=== PATIENT | male | born 1950 | race Asian ===

== ENCOUNTER 2019-07-02 14:09 | Inpatient (IN) | payer MEDICARE, OTHER ==
[~2019-07-02] VITALS: Ht 180.3 cm; Wt 77.1 kg
--- NOTE | 2019-07-02 14:20 | NUR ---
PT BIB HIS SON (KRISTINA) AND DAUGHTER (KEEGAN) FROM A NURSING FACILITY WITH A COMPLAINT OF EPISODIC DISORIENTATION AND FORGETFULNESS. PT IS PLESANT AND ANSWERS ALL QUESTIONS. PT IS AA&O X2-3. PT HAS HX OF CVA IN THE PAST AND HAS LUE CONTRACTURE AND LLE WEAKNESS. PT USES A FOUR FOOTED CANE TO AMBULATE WITH ASSISTANCE, BUT DUE TO THE DISORIENTATION, HE HAS BEEN USING A WHEELCHAIR.
[2019-07-02] MEDS ORDERED: IV NS 0.9% 500 ML BAG IV ONE (15:00)
[2019-07-02 15:32] LABS: BASOPHILS % (AUTO) 0.4 % (0.0-2.0); EOSINOPHILS % (AUTO) 0.9 % (0.0-6.0); HEMATOCRIT 50 % (39-51); HEMOGLOBIN 16.6 g/dL (13.5-17.5); LYMPHOCYTES # (AUTO) 1.1 /CMM (0.8-4.8); LYMPHOCYTES % (AUTO) 10.3 % (20.0-44.0); MEAN CORPUSCULAR HGB CONC 33 g/dl (31.0-36.0); MEAN CORPUSCULAR VOLUME 86 fL (80-96); MONOCYTES # (AUTO) 0.8 /CMM (0.1-1.30); NEUTROPHILS # (AUTO) 8.8 /CMM (1.8-8.9); NEUTROPHILS % (AUTO) 81.4 % (43.0-81.0); PLATELET COUNT (AUTO) 190 /CMM (150-450); RED BLOOD CELL COUNT(AUTO) 5.77 MIL/uL (4.5-6.0); WHITE BLOOD COUNT (AUTO) 10.8 K/uL (4.3-11.0)
[2019-07-02] MEDS ORDERED: ENALAPRILAT INJ (1.25 MG/ML) 1.25 MG/ML VIAL IV ONE ×2 (15:35→15:57)
--- NOTE | 2019-07-02 15:36 | NUR ---
PT'S BP IS STILL ELEVATED. SPOKE TO DR CASTILLO AND NEW ORDERS WERE GIVEN. GLUE COOK IS AT THE BEDSIDE WAITING TO TRANSPORT PT TO CT.
--- NOTE | 2019-07-02 15:36 | NUR ---
PT REC'D 1.25MG VASOTEC VIA IV BY ARIEL JORDAN
[2019-07-02 15:39] LABS: CALCIUM, SERUM 8.7 mg/dL (8.5-10.1); CARBON DIOXIDE 26 mmol/L (21-32); CHLORIDE 100 mmol/L (98-107); CREATININE 1.7 mg/dL (0.6-1.3); GLUCOSE 158 mg/dL (74-106); POTASSIUM 3.4 mmol/L (3.5-5.1); SODIUM SERUM 138 mmol/L (136-145); UREA NITROGEN, BLOOD 15 mg/dL (7-18)
--- NOTE | 2019-07-02 15:39 | NUR ---
PT IS GOING TO CT.
[2019-07-02 15:45] LABS: ALANINE AMINOTRANSFERASE 18 U/L (12-78); ALBUMIN 3.1 g/dL (3.4-5.0); ALKALINE PHOSPHATASE 110 U/L (46-116); ASPARTATE AMINOTRANSFERASE 22 U/L (15-37); BILIRUBIN,DIRECT 0.3 mg/dL (0.0-0.2); BILIRUBIN,TOTAL 1.3 mg/dL (0.2-1.0); TOTAL PROTEIN, SERUM 7.5 g/dL (6.4-8.2)
[2019-07-02 15:46] LABS: ALCOHOL, BLOOD < 3 mg/dL (0-0); SALICYLATE < 2.8 mg/dL (2.8-20.0)
--- NOTE | 2019-07-02 15:54 | NUR ---
PT RETURNED FROM CT.
--- NOTE | 2019-07-02 15:57 | NUR ---
CHECKED PT'S BP AND IT IS 211/116. NOTIFIED. NEW ORDERS GIVEN.
[2019-07-02] MEDS ORDERED: ENALAPRILAT INJ (1.25 MG/ML) 1.25 MG/ML VIAL IV PRN (16:00)
[2019-07-02 16:15] LABS: THYROID STIMULATING HORMONE 1.526 uIU/mL (0.358-3.74)
--- NOTE | 2019-07-02 16:15 | NUR ---
PT STILL DENIES HAVING TO GO TO THE BATHROOM. PT HAS A DIAPER ON THAT NEEDS TO BE CHANGED. CONDOM CATH AND NEW DIAPER APPLIED.
--- NOTE | 2019-07-02 16:20 | NUR ---
PT'S BP IS STILL ELEVATED AT 232/134. NOTIFIED. NEW ORDERS GIVEN AND CARRIED OUT.
[2019-07-02] MEDS ORDERED: hydrALAZINE HCL IV 20 MG VIAL ONE (16:24)
[2019-07-02] MEDS ORDERED: hydrALAZINE HCL IV 20 MG VIAL IV ONE (16:30)
[2019-07-02] MEDS ORDERED: ENALAPRILAT DIHYD. (2.5MG/ML) 1.25 MG/ML VIAL IV ONE (16:30)
--- NOTE | 2019-07-02 16:36 | NUR ---
PAGED [facility].
--- NOTE | 2019-07-02 16:57 | NUR ---
CONDOM CATH REMOVED AND URINE SAMPLE SENT TO LAB. APPROX 300 ML PALE YELLOW URINE OUTPUT.
[2019-07-02 17:04] LABS: APPEARANCE,URINE Clear (CLEAR); BILIRUBIN,URINE Negative (NEGATIVE); BLOOD, URINE Negative Ery/uL (NEGATIVE); COLOR,URINE Yellow (YELLOW); KETONES,URINE Negative (NEGATIVE); LEUKOCYTE ESTERASE ,URINE Negative (NEGATIVE); NITRITE, URINE Negative (NEGATIVE); PROTEIN,URINE >=300 mg/dl (NEGATIVE); UGLUCOSE Negative (NEGATIVE)
--- NOTE | 2019-07-02 17:12 | NUR ---
CALLED NURSING SUP FOR TELE BED.
[2019-07-02 17:19] LABS: BACTERIA,URINE Few /HPF (None Seen); RBC,URINE NONE SEEN /HPF (0-2); SQUAMOUS EPITHELIAL CELL,UR Few /HPF (None Seen); WBC,URINE NONE SEEN /HPF (0-3)
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
[2019-07-02] MEDS ORDERED: SIMV-46 PO (17:28)
[2019-07-02] MEDS ORDERED: GLIP5TAB13 PO (17:28)
[2019-07-02] MEDS ORDERED: ECOTRIN PO (17:28)
[2019-07-02] MEDS ORDERED: CLON0.1T PO (17:28)
[2019-07-02] MEDS ORDERED: LISI40TA4 PO (17:28)
[2019-07-02] MEDS ORDERED: METF-442 PO (17:28)
[2019-07-02] MEDS ORDERED: METO100T7 PO (17:28)
[2019-07-02] MEDS ORDERED: HYDROCODONE/APAP 5/325MG 1 EACH TABLET PO PRN (17:30)
[2019-07-02] MEDS ORDERED: ONDANSETRON HCL/PF 4 MG/2 ML VIAL IVP PRN (17:30)
[2019-07-02] MEDS ORDERED: ZOLPIDEM TARTRATE 5 MG TABLET PO PRN (17:30)
[2019-07-02] MEDS ORDERED: ACETAMINOPHEN 325 MG TABLET PO PRN (17:30)
[2019-07-02] MEDS ORDERED: MAGNESIUM HYDROXIDE 30 ML UDC PO PRN (17:30)
[2019-07-02] MEDS ORDERED: Z GUARD REMEDY 2 OZ OINT TP PRN (17:30)
[2019-07-02] MEDS ORDERED: MAG HYDROX/AL HYDROX/SIMETH 30 ML UDC PO PRN (17:30)
--- NOTE | 2019-07-02 17:31 | NUR ---
NURSING SUP GAVE [phone].
--- NOTE | 2019-07-02 17:37 | NUR ---
PT REC'D A WARM BLANKET. PT'S iPHONE IS CHARGING AND I WILL HELP PT CALL HIS CHILDREN.
--- NOTE | 2019-07-02 17:37 | NUR ---
PT IS UPSET THAT HE CAN NOT SEE HIS CHILDREN, PT WAS TOLD AGAIN THAT THE HOSPITAL IS NOT ALLOWING VISITORS AND WE HAD TO SEND THEM HOME. PT WILL CALL HIS FAMILY WHEN HIS PHONE IS CHARGED.
--- NOTE | 2019-07-02 17:39 | NUR ---
CALLING REPORT TO TELE NURSE.
--- NOTE | 2019-07-02 17:40 | NUR ---
CALLING REPORT TO SENIOR SALESFORCE DEVELOPER. WILL CALL BACK IN 5 MINS.
--- NOTE | 2019-07-02 17:51 | NUR ---
CALLING REPORT TO TELE NURSE.
--- NOTE | 2019-07-02 17:53 | NUR ---
REPORT TO ARIEL STRAUSS
[2019-07-02] MEDS ORDERED: hydrALAZINE HCL 25 MG TABLET PO SCH (18:00)
--- NOTE | 2019-07-02 18:40 | NUR ---
CATTLE MANAGER NOTES PATIENT RECEIVED IN NO RESPIRATORY DISTRESS, NO CHEST PAIN OR ANY DISCOMFORT AT THIS TIME. SKIN WARM TO TOUCH, IV ACCESS SITE INTACT AND PATENT. CARRIED OUT ADMISSION ORDERS ENDORSE ADMISSION TO ONCOMING NURSE.
[2019-07-02] MEDS: METFORMIN 500 MG TABLET PO SCH (19:33)
[2019-07-02] MEDS: LISINOPRIL (20MG) 20 MG TABLET PO SCH (19:36)
[2019-07-02] MEDS: METOPROLOL SUCCINATE 50 MG TAB.SR.24H PO SCH (19:36)
[2019-07-02] MEDS: glipiZIDE 5 MG TABLET PO SCH (19:36)
--- NOTE | 2019-07-02 19:40 | NUR ---
CAN STERILIZER NOTES PATIENT BLOOD PRESSURE 197/ 123 PULSE 65. AM NURSE ADMINISTERED METOPROLOL AND LISONPRIL PER ADMITTING DR ORDER. WILL CONTINUE TO MONITOR.
[2019-07-02 20:00] VITALS: BP 197/123
--- NOTE | 2019-07-02 20:00 | NUR ---
FIELD ARTILLERY FIRE CONTROL MAN ADMITTING NOTES PATIENT RECEIVED BEGINNING OF SHIFT RESTING IN BED. A/O X2, CONFUSED.STABLE ON RA. NO SIGNS OF ACUTE DISTRESS. NO COMPLAINTS OF PAIN OR DISCOMFORT. BELONGINGS ACCOUNTED FOR. PATIENT ORIENTED TO ROOM AND STAFF. VS TAKEN, SKIN ASSESSMENT DONE. IV LOCATED ON R HAND #20 SL. SAFETY PRECAUTIONS IN PLACE WITH BED IN LOWEST POSITION, CALL LIGHT WITHIN REACH, BREAKS ON, BED ALARM ON. WILL CONTINUE TO MONITOR.
[2019-07-02] MEDS: hydrALAZINE HCL 25 MG TABLET PO PRN (20:44)
--- NOTE | 2019-07-02 20:50 | NUR ---
SURVEILLANCE SYSTEM MONITOR NOTES RECHECKED PATIENT BP 199/ 105. ADMINISTERED HYDRALAZINE 25 MG PRN. WILL CONTINUE TO MONITOR.
[2019-07-02] MEDS: CLONIDINE HCL 0.1 MG TABLET PO SCH (22:30)
--- NOTE | 2019-07-02 22:40 | NUR ---
ANIMAL PHYSIOLOGY TEACHER NOTES PATIENT BP DECREASING 164/ 87 ADMINISTERED SCHEDULED CLONIDINE. PATIENT SHOWING NO SIGNS OF DISTRESS, ABLE TO MAKE NEEDS KNOWN, NO COMPLAINTS OF PAIN. WILL CONTINUE TO MONITOR.
[2019-07-03] VITALS (9 sets, daily range): BP systolic 151–217; BP diastolic 64–108
--- NOTE | 2019-07-03 07:23 | NUR ---
STOVE FITTER CLOSING NOTES PATIENT CURRENTLY RESTING IN BED A/OX 2, CAN BE FORGETFUL. STABLE ON RA WITH BREATHING EVEN AND UNLABORED, NO SOB NOTED. NO SIGNS OF ACUTE DISTRESS. NO COMPLAINTS OF PAIN OR DISCOMFORT. TELE MONITOR READING SR. IV LOCATED ON R FA #20 SL. SAFETY PRECAUTIONS IN PLACE WITH BED IN LOWEST POSITION, CALL LIGHT WITHIN REACH, BREAKS ON, SIDE RAILS UP. WILL ENDORSE TO ONCOMING SHIFT ABOUT ORA,.
[2019-07-03 07:36] LABS: BASOPHILS # (AUTO) 0.1 /CMM (0.0-0.2); BASOPHILS % (AUTO) 0.6 % (0.0-2.0); EOSINOPHILS % (AUTO) 1.6 % (0.0-6.0); HEMATOCRIT 44 % (39-51); HEMOGLOBIN 14.8 g/dL (13.5-17.5); LYMPHOCYTES # (AUTO) 1.5 /CMM (0.8-4.8); LYMPHOCYTES % (AUTO) 14.6 % (20.0-44.0); MEAN CORPUSCULAR HGB CONC 34 g/dl (31.0-36.0); MEAN CORPUSCULAR VOLUME 84 fL (80-96); MONOCYTES # (AUTO) 0.9 /CMM (0.1-1.30); MONOCYTES % (AUTO) 8.7 % (2.0-12.0); NEUTROPHILS # (AUTO) 7.5 /CMM (1.8-8.9); NEUTROPHILS % (AUTO) 74.5 % (43.0-81.0); PLATELET COUNT (AUTO) 185 /CMM (150-450); RED BLOOD CELL COUNT(AUTO) 5.18 MIL/uL (4.5-6.0); WHITE BLOOD COUNT (AUTO) 10.1 K/uL (4.3-11.0)
[2019-07-03 07:43] LABS: ALBUMIN 2.7 g/dL (3.4-5.0); BILIRUBIN,TOTAL 1.4 mg/dL (0.2-1.0); CALCIUM, SERUM 8.3 mg/dL (8.5-10.1); CREATININE 1.5 mg/dL (0.6-1.3); MAGNESIUM 1.7 mg/dL (1.8-2.4); PHOSPHORUS 3.6 mg/dL (2.5-4.9); POTASSIUM 3.1 mmol/L (3.5-5.1); TOTAL PROTEIN, SERUM 6.6 g/dL (6.4-8.2)
--- NOTE | 2019-07-03 07:50 | NUR ---
Tele/RN Opening Note Received patient AO x 1-2, sleeping, does no appears pain or any discomfort. Respiratory even and unlabored in room air. Skin is warm to touch, kept clean/dry, intact IV site on right FA 20g SL. Kept low position of the bed with locked wheel and elevated head of bed foe secure airway. Bed alarm is on. Call light within reach, will continue to monitor.
[2019-07-03 07:51] LABS: THYROID STIMULATING HORMONE 1.81 uIU/mL (0.358-3.74)
[2019-07-03] MEDS: glipiZIDE 5 MG TABLET PO SCH ×2 (08:37→17:19)
[2019-07-03] MEDS: LISINOPRIL (20MG) 20 MG TABLET PO SCH (08:37)
[2019-07-03] MEDS: METFORMIN 500 MG TABLET PO SCH ×2 (08:37→17:19)
[2019-07-03] MEDS: METOPROLOL SUCCINATE 50 MG TAB.SR.24H PO SCH (08:38)
[2019-07-03] MEDS ORDERED: AMLODIPINE BESYLATE 5 MG TABLET PO SCH (09:00)
[2019-07-03] MEDS ORDERED: LISINOPRIL (20MG) 20 MG TABLET PO SCH (09:00)
[2019-07-03] MEDS ORDERED: Magnesium 1GM/D5W 100ML PREMIX 100 ML IV SCH (09:30)
[2019-07-03] MEDS: POTASSIUM CHLORIDE 20 MEQ TAB.PRT.SR PO SCH ×2 (09:45→10:29)
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
--- NOTE | 2019-07-03 10:09 | NUR ---
Patient received DVT pump order for DVT prophylaxis, noted and carry out.
--- NOTE | 2019-07-03 13:10 | NUR ---
Telephone consent obtained by Daughter/Rosario Hall.
--- NOTE | 2019-07-03 14:56 | NUR ---
ATTEMPTED FOR US RENAL EXAM AT 14:30. WAX PATTERN COATER IN THE ROOM CLEANING AND CHANGING THE PT'S CLOTHES AND SHEETS
[2019-07-03 17:24] LABS: APPEARANCE,URINE CLEAR (CLEAR); BILIRUBIN,URINE NEGATIVE (NEGATIVE); BLOOD, URINE SMALL Ery/uL (NEGATIVE); COLOR,URINE YELLOW (YELLOW); KETONES,URINE NEGATIVE (NEGATIVE); LEUKOCYTE ESTERASE ,URINE NEGATIVE (NEGATIVE); NITRITE, URINE NEGATIVE (NEGATIVE); PROTEIN,URINE >=300 mg/dl (NEGATIVE); UGLUCOSE 100 MG/DL mg/dL (NEGATIVE)
[2019-07-03 17:40] LABS: BACTERIA,URINE Few /HPF (None Seen); COARSE GRANULAR CASTS,URINE Few /LPF (None Seen); EOSINOPHIL,URINE None Seen; FINE GRANULAR CASTS,URINE Few /LPF (None Seen); SQUAMOUS EPITHELIAL CELL,UR Few /HPF (None Seen); WBC,URINE 0-2 /HPF (0-3)
[2019-07-03 18:03] LABS: URINE TOTAL PROTEIN 581.5 mg/dL (0-11.9)
--- NOTE | 2019-07-03 18:30 | NUR ---
MS/RN Closing note Patient in bed, no appears pain or any discomfort. Respiratory even and unlabored with room air. Skin is warm touch, kept clean/dry, intact IV site. Keep low bed position with locked wheel and elevated head of bed for secure airway. Call light within reach, will endorse warehouse supervisor.
--- NOTE | 2019-07-03 19:10 | NUR ---
MS/RN OPENING NOTES: PATIENT RECEIVED RESTING IN BED. A/O X2, CONFUSED AND FORGETFUL. REORIENTATION NEEDED. ON RA SATURATING WELL. NO S/S OF ACUTE DISTRESS. NO C/O PAIN OR DISCOMFORT. IV LOCATED ON R HAND #20 SL. SCHEDULED FOR LEFT FOOT CALLUS DEBRIDEMENT TOMORROW MORNING. CONSENTS SIGNED. SAFETY PRECAUTIONS IN PLACE WITH BED IN LOWEST POSITION, CALL LIGHT WITHIN REACH, BREAKS ON, BED ALARM ON. WILL CONTINUE TO MONITOR.
[2019-07-03] MEDS: CLONIDINE HCL 0.1 MG TABLET PO SCH (21:27)
[2019-07-03] MEDS: SIMVASTATIN 20 MG TABLET PO SCH (21:27)
[2019-07-03] MEDS: hydrALAZINE HCL 25 MG TABLET PO PRN (23:58)
--- NOTE | 2019-07-04 00:01 | NUR ---
MS/RN NOTES: PT.'S BLOOD PRESSURE ELEVATED. 168/97. HR:69. NO C/O PAIN AT THIS TIME. ADMINISTERED HYDRALAZINE 25MG PO ORDERED PRN FOR SBP >160. WILL CONTINUE TO MONITOR.
[2019-07-04 01:20] VITALS: BP 149/84
--- NOTE | 2019-07-04 01:20 | NUR ---
MS/RN NOTES: REASSESSMENT OF BP. NOW 149/84. HR:70. NO C/O PAIN AT THIS TIME. PT. STABLE. HYDRALAZINE 25MG PO EFFECTIVE. WILL KEEP MONITORING.
--- NOTE | 2019-07-04 06:49 | NUR ---
MS/RN CLOSING NOTES: PATIENT CURRENTLY RESTING IN BED. REMAINS A/OX 2, STABLE ON RA WITH BREATHING EVEN AND UNLABORED, NO SOB NOTED. NO SIGNS OF ACUTE DISTRESS. NO COMPLAINTS OF PAIN OR DISCOMFORT. NO SIGNIFICANT CHANGES IN CONDITION. IV LOCATED ON R FA #20 SL. ALL NEEDS ATTENDED AND MET. ALL DUE MEDS GIVEN ORDERED. KEPT PT. WARM AND COMFORTABLE THROUGHOUT THE SHIFT. SAFETY PRECAUTIONS IN PLACE WITH BED IN LOWEST POSITION, CALL LIGHT WITHIN REACH, BREAKS ON, SIDE RAILS UP. WILL ENDORSE TO ONCOMING SHIFT ABOUT ORA,.
[2019-07-04 06:51] LABS: BASOPHILS # (AUTO) 0.1 /CMM (0.0-0.2); BASOPHILS % (AUTO) 0.6 % (0.0-2.0); EOSINOPHILS % (AUTO) 1.7 % (0.0-6.0); HEMATOCRIT 44 % (39-51); HEMOGLOBIN 14.7 g/dL (13.5-17.5); LYMPHOCYTES # (AUTO) 1.3 /CMM (0.8-4.8); LYMPHOCYTES % (AUTO) 13.7 % (20.0-44.0); MEAN CORPUSCULAR HGB CONC 34 g/dl (31.0-36.0); MEAN CORPUSCULAR VOLUME 85 fL (80-96); MONOCYTES % (AUTO) 10.9 % (2.0-12.0); NEUTROPHILS # (AUTO) 6.7 /CMM (1.8-8.9); NEUTROPHILS % (AUTO) 73.1 % (43.0-81.0); PLATELET COUNT (AUTO) 181 /CMM (150-450); RED BLOOD CELL COUNT(AUTO) 5.15 MIL/uL (4.5-6.0); WHITE BLOOD COUNT (AUTO) 9.1 K/uL (4.3-11.0)
[2019-07-04 07:05] LABS: ALBUMIN 2.6 g/dL (3.4-5.0); POTASSIUM 3.1 mmol/L (3.5-5.1)
[2019-07-04 07:36] LABS: BILIRUBIN,TOTAL 1.2 mg/dL (0.2-1.0); CALCIUM, SERUM 8.3 mg/dL (8.5-10.1); CREATININE 1.5 mg/dL (0.6-1.3); MAGNESIUM 1.9 mg/dL (1.8-2.4); PHOSPHORUS 3.4 mg/dL (2.5-4.9); TOTAL PROTEIN, SERUM 6.5 g/dL (6.4-8.2)
[2019-07-04 07:43] LABS: THYROID STIMULATING HORMONE 1.625 uIU/mL (0.358-3.74)
[2019-07-04 08:00] VITALS: BP 159/94
--- NOTE | 2019-07-04 08:00 | NUR ---
ms rn received on bed, awake,oriented x2,not in any form of distress, respirations even and unlabored,no sob noted, lungs are diminish,abdomen sofr,positive bowel sounds,denies pain at this time,all needs attended.
[2019-07-04] MEDS: METFORMIN 500 MG TABLET PO SCH ×2 (09:26→17:02)
[2019-07-04] MEDS: glipiZIDE 5 MG TABLET PO SCH ×2 (09:27→17:02)
[2019-07-04] MEDS: LISINOPRIL (20MG) 20 MG TABLET PO SCH (09:27)
[2019-07-04] MEDS: METOPROLOL SUCCINATE 50 MG TAB.SR.24H PO SCH (09:27)
--- NOTE | 2019-07-04 10:00 | NUR ---
ms duran breakfast served,due meds given,tolerated well.
[2019-07-04] MEDS: POTASSIUM CHLORIDE 20 MEQ TAB.PRT.SR PO SCH ×3 (11:44→15:38)
[2019-07-04 16:00] VITALS: BP 149/90
[2019-07-04] MEDS: ASPIRIN 81 MG TAB.CHEW PO SCH (17:02)
--- NOTE | 2019-07-04 18:00 | NUR ---
ms rn on bed,no distress noted.
--- NOTE | 2019-07-04 19:00 | NUR ---
MS/RN OPENING NOTES: RECEIVED PATIENT RESTING IN BED. A/O X2-3, CONFUSED AND FORGETFUL. VERBALLY RESPONSIVE AND ABLE TO MAKE NEEDS KNOWN. REORIENTATION NEEDED. ON RA SATURATING WELL. NO S/S OF ACUTE DISTRESS. NO C/O PAIN OR DISCOMFORT. IV LOCATED ON R HAND #20 SL. SAFETY PRECAUTIONS IN PLACE WITH BED IN LOWEST POSITION, CALL LIGHT WITHIN REACH, BREAKS ON, BED ALARM ON. WILL CONTINUE TO MONITOR.
[2019-07-04 20:00] VITALS: BP 139/71
--- NOTE | 2019-07-04 20:00 | NUR ---
MS/RN NOTES: DR. BERRY CALLED TO CHECK IN WITH PT., INCLUDING IF HE'S FEELING DEPRESSED OR SAD. PER PT "I HAVE 3 KIDS AND I'M HAPPY WITH MY FAMILY BUT I LIVE ALONE." DR. BERRY WILL ORDER MED FOR DEPRESSION TO BE SCHEDULED IN THE MORNING.
[2019-07-04 20:34] VITALS: BP 139/71
[2019-07-04] MEDS: SIMVASTATIN 20 MG TABLET PO SCH (21:26)
[2019-07-04] MEDS: CLONIDINE HCL 0.1 MG TABLET PO SCH (21:27)
--- NOTE | 2019-07-05 07:02 | NUR ---
MS RN OPENING NOTES: RECEIVED PT RESTING IN BED. A/O X2-3, CONFUSED AND FORGETFUL. PT ABLE TO VERBALIZE NEEDS. REORIENTATION AND REDIRECTION NEEDED. PT SATURATING WELL ON RA. NO S/S OF ANY ACUTE DISTRESS. NO C/O PAIN OR DISCOMFORT AT THIS TIME. IV ACCESS ON RFA G#20 SL. BED IN LOWEST LOCKED, SIDE RAILS UP, BED ALARM ON, HOB ELEVATED TO SEMI FOWLERS POSITION, CALL LIGHTS WITHIN REACH. WILL CONTINUE TO MONITOR
[2019-07-05 07:12] LABS: CALCIUM, SERUM 8.2 mg/dL (8.5-10.1); CREATININE 1.4 mg/dL (0.6-1.3); POTASSIUM 3.9 mmol/L (3.5-5.1)
[2019-07-05 08:00] VITALS: BP 169/88
[2019-07-05] MEDS: LISINOPRIL (20MG) 20 MG TABLET PO SCH (08:40)
[2019-07-05 08:42] VITALS: BP 169/88
[2019-07-05] MEDS: METOPROLOL SUCCINATE 50 MG TAB.SR.24H PO SCH (08:42)
[2019-07-05] MEDS: ASPIRIN 81 MG TAB.CHEW PO SCH (08:42)
[2019-07-05] MEDS: glipiZIDE 5 MG TABLET PO SCH ×2 (08:42→16:48)
[2019-07-05] MEDS: METFORMIN 500 MG TABLET PO SCH ×2 (08:43→16:48)
[2019-07-05] MEDS ORDERED: Fluoxetine 10 mg capsule PO SCH (09:00)
[2019-07-05] MEDS ORDERED: ASPIRIN 81 MG TAB.CHEW PO SCH (09:00)
--- NOTE | 2019-07-05 17:05 | NUR ---
MS LEAD CUSTOMER SERVICE REPRESENTATIVE NOTES PT DISCHARGED TO [facility] AT THIS TIME. PT IS STABLE. VS STABLE. PT CARE, TREATMENT AND MEDICATION EDUCATION PROVIDED. PT VERBALIZED UNDERSTANDING TO BENIFITS AND RISKS OF DISCHARGE TEACHINGS. ALL CARE, MEDICATIONS AND NEEDS ADMINISTERED PER ORDER. IV ACCESS REMOVED, CLEAN AND DRESSED. NO SIGNS OF INFILTRATION OR BLEEDING NOTED. ALL BELONGINGS ACCOUNTED FOR AND DOCUMENTED IN CHART. PICTURES TAKEN, DOCUMENTED AND FILED IN CHART. PT ACCOMPANIED ON WHEEL CHAIR TO LOBBY BY MAIK BATISTA. PT PICKED UP BY DAUGHTER NOAH.
[2019-07-10 11:11] LABS: *SPE A/G RATIO 0.7 (0.7-1.7); *SPE ALBUMIN 2.4 g/dL (2.9-4.4); *SPE ALPHA-1-GLOBULIN 0.2 g/dL (0.0-0.4); *SPE ALPHA-2-GLOBULIN 0.8 g/dL (0.4-1.0); *SPE BETA GLOBULIN 0.7 g/dL (0.7-1.3); *SPE GLOBULIN, TOTAL 3.4 g/dL (2.2-3.9); *SPE M-SPIKE 0.8 g/dL (Not Observed); *SPEGAMMA GLOBULIN 1.6 g/dL (0.4-1.8)
== END 2019-07-05 17:15 | DRG 682 ==
LOC: ER 14:15 → TELE 17:36 → MED 07-03 11:09
PROVIDERS: ADMIT Internal Medicine; ATTEND Nurse Practitioner Acute Care
PROC: 0HBNXZZ Excision of Left Foot Skin, External Approach (ICD-10-PCS; principal; 2019-07-04)
DX: N17.0 Acute kidney failure with tubular necrosis (principal); G93.41 Metabolic encephalopathy; I69.854 Hemiplegia and hemiparesis following other cerebrovascular disease affecting left non-dominant side; F33.2 Major depressive disorder, recurrent severe without psychotic features; I16.0 Hypertensive urgency; I10 Essential (primary) hypertension; F01.50 Vascular dementia, unspecified severity, without behavioral disturbance, psychotic disturbance, mood disturbance, and anxiety; L84 Corns and callosities; I25.10 Atherosclerotic heart disease of native coronary artery without angina pectoris; E78.5 Hyperlipidemia, unspecified; E87.6 Hypokalemia; E83.42 Hypomagnesemia; E11.621 Type 2 diabetes mellitus with foot ulcer; L97.529 Non-pressure chronic ulcer of other part of left foot with unspecified severity; M21.372 Foot drop, left foot; M20.42 Other hammer toe(s) (acquired), left foot; M20.41 Other hammer toe(s) (acquired), right foot; M62.562 Muscle wasting and atrophy, not elsewhere classified, left lower leg; M62.561 Muscle wasting and atrophy, not elsewhere classified, right lower leg
CPT/HCPCS: 36415; 70450-TC; 71045-TC; 80048-TC; 80053-TC; 80061-TC; 80076-TC; 80305; 81000-TC; 82533; 82550-TC; 82570-TC; 82962-TC; 83735-TC; 83970; 84100-TC; 84155; 84155-TC; 84165; 84300-TC; 84443-TC; 84484-TC; 85025-TC; 87081-TC; 97110-TC; 97112-TC; 97116-TC; 97530-TC; A4349; G0378; G0480; J0360; J3475; J3490; J7030; J7040

== ENCOUNTER 2019-08-14 21:06 | Inpatient (IN) | payer OTHER ==
[~2019-08-14] VITALS: Ht 185.4 cm; Wt 77.1 kg
[~2019-08-14 21:06] MED LIST: CLON0.1T PO; ECOTRIN PO; GLIP5TAB13 PO; LISI40TA4 PO; METF-442 PO; METO100T7 PO; SIMV-46 PO
[2019-08-14] MEDS ORDERED: ENALAPRILAT INJ (1.25 MG/ML) 1.25 MG/ML VIAL IV ONE ×2 (21:29→21:30)
[2019-08-14] MEDS ORDERED: IV NS 0.9% 500 ML BAG IV ONE (21:30)
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
--- NOTE | 2019-08-14 21:41 | NUR ---
blood drawn and sent to lab.
[2019-08-14 21:45] LABS: BASOPHILS # (AUTO) 0.1 /CMM (0.0-0.2); BASOPHILS % (AUTO) 0.8 % (0.0-2.0); HEMATOCRIT 44 % (39-51); HEMOGLOBIN 14.8 g/dL (13.5-17.5); LYMPHOCYTES # (AUTO) 1.4 /CMM (0.8-4.8); LYMPHOCYTES % (AUTO) 11.6 % (20.0-44.0); MEAN CORPUSCULAR HGB CONC 34 g/dl (31.0-36.0); MEAN CORPUSCULAR VOLUME 86 fL (80-96); MONOCYTES # (AUTO) 0.9 /CMM (0.1-1.30); MONOCYTES % (AUTO) 7.2 % (2.0-12.0); NEUTROPHILS # (AUTO) 9.7 /CMM (1.8-8.9); NEUTROPHILS % (AUTO) 79.4 % (43.0-81.0); PLATELET COUNT (AUTO) 234 /CMM (150-450); RED BLOOD CELL COUNT(AUTO) 5.05 MIL/uL (4.5-6.0); WHITE BLOOD COUNT (AUTO) 12.3 K/uL (4.3-11.0)
[2019-08-14 22:39] LABS: CALCIUM, SERUM 8.8 mg/dL (8.5-10.1); CARBON DIOXIDE 28 mmol/L (21-32); CHLORIDE 100 mmol/L (98-107); CREATININE 1.6 mg/dL (0.6-1.3); GLUCOSE 191 mg/dL (74-106); POTASSIUM 3.1 mmol/L (3.5-5.1); SODIUM SERUM 137 mmol/L (136-145); UREA NITROGEN, BLOOD 24 mg/dL (7-18)
[2019-08-14] MEDS ORDERED: LIDOCAINE 2% JEL UROJET 10 ML MM ONE ×3 (22:56→23:00)
[2019-08-14 23:01] LABS: ALANINE AMINOTRANSFERASE 17 U/L (12-78); ALKALINE PHOSPHATASE 91 U/L (46-116); ASPARTATE AMINOTRANSFERASE 20 U/L (15-37); BILIRUBIN,DIRECT 0.2 mg/dL (0.0-0.2)
[2019-08-14 23:02] LABS: ACETAMINOPHEN < 2 ug/ml (10-30); ALCOHOL, BLOOD 1 mg/dL (0-0); SALICYLATE < 2.0 mg/dL (2.8-20.0)
[2019-08-14] MEDS ORDERED: IV PREMIX 0.45% NS + KCL 1,000 ML IV ONE (23:02)
--- NOTE | 2019-08-14 23:04 | NUR ---
URINE COLLECTED AND SENT TO THE LAB.
[2019-08-14 23:25] LABS: APPEARANCE,URINE Clear (CLEAR); BILIRUBIN,URINE Negative (NEGATIVE); BLOOD, URINE Small Ery/uL (NEGATIVE); COLOR,URINE Yellow (YELLOW); KETONES,URINE Negative (NEGATIVE); LEUKOCYTE ESTERASE ,URINE Negative (NEGATIVE); NITRITE, URINE Negative (NEGATIVE); PROTEIN,URINE >=300 mg/dl (NEGATIVE); UGLUCOSE 250 MG/DL mg/dL (NEGATIVE)
--- NOTE | 2019-08-14 23:28 | NUR ---
ORDER FOR 1/2 NS 20MEQ KCL 1000ML MEDICATION IS NOT AVAILABLE IN THE ER DEPARTMENT. MEDICATION ORDER IS GIVEN TO NURSING SPECIAL EVENTS DRIVER FOR MEDICATION REFILL.
[2019-08-14 23:51] LABS: BACTERIA,URINE None seen /HPF (None Seen); SQUAMOUS EPITHELIAL CELL,UR Few /HPF (None Seen); URINE AMORPHOUS URATE Few /HPF (None Seen); WBC,URINE 0-2 /HPF (0-3)
--- NOTE | 2019-08-15 00:30 | NUR ---
room assignment: [id number] gps
--- NOTE | 2019-08-15 00:39 | NUR ---
DR. STUART SPEAKING WITH DR. REBOLLEDO REGARDING ADMISSION
--- NOTE | 2019-08-15 01:16 | NUR ---
PATIENT IS SENT TO CT VIA [facility]
--- NOTE | 2019-08-15 01:25 | NUR ---
PATIENT RETURN FROM CT.
--- NOTE | 2019-08-15 01:26 | NUR ---
ATTEMPTED TO GIVE REPORT TO NURSE, STAFF STATES THAT CHARGE NURSE AND ASSIGNED NURSE ARE TAKING A BREAK, CALL 15-20MINUTES.
[2019-08-15] MEDS ORDERED: ONDANSETRON HCL/PF 4 MG/2 ML VIAL ONE (01:43)
[2019-08-15] MEDS ORDERED: MISCELLANEOUS MED 1 EA EA XX ONE (02:00)
--- NOTE | 2019-08-15 02:06 | NUR ---
REPORT GIVEN TO MADHURI GEORGE FOR ORA.
[2019-08-15 02:20] VITALS: BP 194/115
--- NOTE | 2019-08-15 02:30 | NUR ---
RN NOTES RECEIVED PATIENT TRANSPORTED VIA GURNEY FROM ER. INITIATED ADMISSION ASSESSMENT, SKIN ASSESSMENT DONE, PATIENT IS WITHDRAWN , ALERT ORIENTED X1-2. SAFETY MEASURES INPLACE, CALL LIGHT WITHIN EASY REACH, BED IN LOW LOCKED POSITION, SIDERAILS UPX2. KEEP CLEAN WARM AND COMFORTABLE. VOMITTED COFFEE GROUND EMESIS X1 APPROXIMATELY 50 ML. ALL NEEDS ANTICIPATED,AWAITING DR. REBOLLEDO FOR ORDERS.
[2019-08-15 04:00] VITALS: BP 158/87
--- NOTE | 2019-08-15 04:36 | NUR ---
RN NOTES CALLED AND SPOKE WITH DR. DAVID REBOLLEDO MD. ADMITTING ORDERS OBTAINED.
[2019-08-15] MEDS ORDERED: MORPHINE SULFATE INJ 2 MG/ML DISP.SYRIN IV PRN (05:00)
[2019-08-15] MEDS ORDERED: ONDANSETRON HCL/PF 4 MG/2 ML VIAL IV PRN (05:00)
[2019-08-15] MEDS ORDERED: LORAZEPAM INJ 2 MG/ML VIAL IV PRN (05:00)
[2019-08-15] MEDS ORDERED: ACETAMINOPHEN 325 MG TABLET PO PRN (05:00)
[2019-08-15] MEDS ORDERED: IV D5/0.45 NACL 1,000 ML IV ONE (05:00)
[2019-08-15] MEDS ORDERED: BLOOD SUGAR DIAGNOSTIC 1 EACH STRIP IN SCH ×2 (06:00)
[2019-08-15] MEDS ORDERED: INSULIN ASPART/LISPRO 100 UNIT/ML CARTRIDGE SQ PRN (06:00)
[2019-08-15] MEDS ORDERED: DEXTROSE 50%-WATER 50 ML DISP.SYRIN IV PRN ×2 (06:00)
[2019-08-15] MEDS ORDERED: *INSULIN ASPART NOVOLOG 100 UNIT/ML CARTRIDGE SQ PRN (06:00)
[2019-08-15] MEDS ORDERED: PIPERACILLIN /TAZOBACTAM 3.375 G VIAL IV ONE (06:10)
[2019-08-15] MEDS: PIPERACILLIN /TAZOBACTAM 3.375 G in IV D5W 50 ML IV SCH ×3 (06:12→21:10)
[2019-08-15 06:18] VITALS: BP 158/87
[2019-08-15 06:31] LABS: BASOPHILS % (AUTO) 0.3 % (0.0-2.0); EOSINOPHILS % (AUTO) 0.5 % (0.0-6.0); HEMATOCRIT 40 % (39-51); HEMOGLOBIN 13.3 g/dL (13.5-17.5); LYMPHOCYTES # (AUTO) 1.3 /CMM (0.8-4.8); LYMPHOCYTES % (AUTO) 11.1 % (20.0-44.0); MEAN CORPUSCULAR HGB CONC 34 g/dl (31.0-36.0); MEAN CORPUSCULAR VOLUME 87 fL (80-96); MONOCYTES # (AUTO) 0.5 /CMM (0.1-1.30); MONOCYTES % (AUTO) 4.6 % (2.0-12.0); NEUTROPHILS # (AUTO) 9.5 /CMM (1.8-8.9); NEUTROPHILS % (AUTO) 83.5 % (43.0-81.0); PLATELET COUNT (AUTO) 204 /CMM (150-450); RED BLOOD CELL COUNT(AUTO) 4.56 MIL/uL (4.5-6.0); WHITE BLOOD COUNT (AUTO) 11.3 K/uL (4.3-11.0)
[2019-08-15] MEDS: BLOOD SUGAR DIAGNOSTIC 1 EACH STRIP IN SCH ×4 (06:35→23:40)
--- NOTE | 2019-08-15 06:39 | NUR ---
RN NOTES ALL NEEDS ATTENDED AND MET. ATTEMPTED TO PLACE CONDOM CATHETER TO OBTAIN URINE SPECIMEN FOR URINALYSIS AND URINE PROFILE, PATIENT REFUSED. SAFETY MEASURES INPLACE, BED IN LOW LOCKED POSITION, REPOSITIONED FOR COMFORT, NO SOB NOTED, RESTING COMFORTABLY, CALL LIGHT WITHIN EASY REACH.WILL ENDORSE TO AM NURSE FOR CONTINUITY OF CARE.
[2019-08-15 07:01] LABS: ALBUMIN 2.9 g/dL (3.4-5.0); BILIRUBIN,TOTAL 1.3 mg/dL (0.2-1.0); CALCIUM, SERUM 8.4 mg/dL (8.5-10.1); CREATININE 1.3 mg/dL (0.6-1.3); POTASSIUM 3.3 mmol/L (3.5-5.1)
[2019-08-15 07:05] LABS: THYROID STIMULATING HORMONE 2.402 uIU/mL (0.358-3.74)
[2019-08-15] MEDS ORDERED: ASPI-1152 PO (07:34)
[2019-08-15] MEDS ORDERED: AMLO5TAB9 PO (07:34)
[2019-08-15] MEDS ORDERED: QUET25TA PO (07:34)
[2019-08-15] MEDS: PANTOPRAZOLE 40 MG VIAL IV SCH ×2 (09:22→21:10)
--- NOTE | 2019-08-15 09:30 | NUR ---
MS RN NOTES PATIENT UNABLE TO RECALL WHAT HAPPENED PRIOR TO HOSPITALIZATION. PATIENT AWARE OF RETIREMENT MEMORY, AWARE OF CURRENT PRESIDENT WHEN INTERVIEWED.
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
[2019-08-15] MEDS ORDERED: Z GUARD REMEDY 2 OZ OINT TP PRN (10:00)
[2019-08-15] MEDS ORDERED: POTASSIUM CHLORIDE 20 MEQ TAB.PRT.SR PO SCH (10:30)
[2019-08-15] MEDS: Z GUARD REMEDY 2 OZ OINT TP SCH (11:16)
--- NOTE | 2019-08-15 12:00 | NUR ---
MS RN NOTES CALLED PHARMACY AWAITING FOR INSULIN.
--- NOTE | 2019-08-15 12:55 | NUR ---
MS RN NOTES CALLED PHARMACY, AWAITING FOR INSULIN
--- NOTE | 2019-08-15 13:00 | NUR ---
MS RN NOTES PATIENT ATE LUNCH WELL WITHOUT CHEWING/SWALLOWING DIFFICULTY WITH FAIR PO INTAKE.
--- NOTE | 2019-08-15 13:10 | NUR ---
MS RN NOTES CALLED AND INFORMED PHARMACY STILL AWAITING FOR INSULIN. PER PHARMACY WILL SEND MEDICATION.
--- NOTE | 2019-08-15 13:54 | NUR ---
MS RN NOTES RECEIVED INSULIN FROM PHARMACY.
[2019-08-15] MEDS: INSULIN REGULAR, HUMAN 100 UNIT/ML 3 ML VIAL SQ PRN ×3 (13:57→23:20)
--- NOTE | 2019-08-15 15:15 | NUR ---
MS RN NOTES PATIENT SEEN AND EXMAINED BY Darinel PORTER PER , NO ANTICOAGULANTS, WILL RESUME HOME MEDICATIONS/ MED RECON. APPLIED DVT PUMP IN PLACE.
[2019-08-15] MEDS ORDERED: POTASSIUM CHLORIDE 20 MEQ TAB.PRT.SR PO ONE (15:30)
[2019-08-15] MEDS ORDERED: METOPROLOL SUCCINATE 50 MG TAB.SR.24H PO SCH (15:30)
[2019-08-15] MEDS ORDERED: AMLODIPINE BESYLATE 5 MG TABLET PO SCH (16:00)
[2019-08-15 16:08] VITALS: BP 170/90
[2019-08-15] MEDS: IV NS 0.9% 1,000 ML IV PRN (16:11)
[2019-08-15] MEDS: hydrALAZINE HCL IV 20 MG VIAL IV PRN (16:28)
--- NOTE | 2019-08-15 16:35 | NUR ---
MS RN NOTES DR. GO MADE AWARE OF PSYCH CONSULT PER DR. REBOLLEDO'S ORDER.
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
[2019-08-15] MEDS: QUETIAPINE FUMARATE 25 MG TABLET PO SCH (18:23)
--- NOTE | 2019-08-15 19:00 | NUR ---
MS RN NOTES PATIENT RESTING COMFORTABLY IN BED, WATCHING TV. HOB ELEVATED. NO S/S OF RESPIRATORY DISTRESS. DENIES ANY C/O PAIN NOR DISCOMFORT. RIGHT AC # 20 INTACT AND PATENT INFUSING NS AT 70ML/HR DAVID WELL. BED IN LOWEST POSITION, LOCKED. BED ALARM ON. BED SIDERAILS UP X2. CALL LIGHT WITHIN REACH. ABLE TO VERBALIZE NEEDS.
--- NOTE | 2019-08-15 19:30 | NUR ---
MS/RN OPENING NOTES RECEIVED PATIENT IN BED RESTING, ALERT AND ORIENTED 1-2. PATIENT SHOWS NO SIGNS OF SOB, IN NO RESPIRATORY DISTRESS. PATIENT STATES NO PAIN AT THE MOMENT. PATIENT ON ROOM AIR TOLERATING WELL. PATIENT HAS CONDOM CATH IN PLACE DRAINING CLEAR YELLOW URINE. IV ACCESS IN PLACE ON RIGHT AC #20 G, INTACT AND RUNNING NS AT 70 ML/HR. SAFETY MEASURES ARE IN PLACE, BED ALARM IS ON, BED IS LOCKED AND PLACED IN LOW POSITION SIDE RAILS UP X 2. CALL LIGHT IS WITHIN REACH. WILL CONTINUE TO MONITOR PATIENT THROUGH OUT SHIFT. Addendum: 08/15/19 at 2255 by GERALDINE ROACH RN MS/RN NOTES NOTES PATIENT HAS LEFT SIDED WEAKNESS BILATERAL UPPER AND LOWER EXTREMITIES. SAFETY MEASURES ARE IN PLACE, BED LOW AND LOCKED SIDE RAILS UP X 2, CALL LIGHT HAS BEEN PLACED WITHIN REACH.
[2019-08-15 20:00] VITALS: BP 160/73
[2019-08-15 20:17] LABS: APPEARANCE,URINE CLEAR (CLEAR); BILIRUBIN,URINE NEGATIVE (NEGATIVE); BLOOD, URINE SMALL Ery/uL (NEGATIVE); COLOR,URINE YELLOW (YELLOW); KETONES,URINE NEGATIVE (NEGATIVE); LEUKOCYTE ESTERASE ,URINE NEGATIVE (NEGATIVE); NITRITE, URINE NEGATIVE (NEGATIVE); PROTEIN,URINE >=300 mg/dl (NEGATIVE); UGLUCOSE 500 MG/DL mg/dL (NEGATIVE)
[2019-08-15 20:25] LABS: BACTERIA,URINE Few /HPF (None Seen); SQUAMOUS EPITHELIAL CELL,UR Few /HPF (None Seen); WBC,URINE 0-2 /HPF (0-3)
[2019-08-15] MEDS ORDERED: SIMVASTATIN 20 MG TABLET PO SCH (22:00)
--- NOTE | 2019-08-15 22:40 | NUR ---
RN NOTES PATIENT WAS LOOKING FOR HIS CELLPHONE, CALLED [facility] AND SPOKE TO DIOR RADER TOLD ME THAT PT'S CELLPHONE IS IN THE FACILITY. TALKED TO THE PATIENT AND INFORMED HIM THAT HIS CELLPHONE IS IN THE FACILITY
[2019-08-16] MEDS: PIPERACILLIN /TAZOBACTAM 3.375 G in IV D5W 50 ML IV SCH (04:03)
--- NOTE | 2019-08-16 06:00 | NUR ---
MS/RN CLOSING NOTES PATIENT IN BED SLEEPING ALERT AND ORIENTED 1-2. PATIENT SHOWS NO SIGNS OF SOB, IN NO RESPIRATORY DISTRESS. PATIENT ON ROOM AIR TOLERATING WELL. PATIENT HAS CONDOM CATH IN PLACE DRAINING CLEAR YELLOW URINE OUTPUT 1600ML. IV ACCESS IN PLACE ON RIGHT AC #20 G, INTACT AND RUNNING NS AT 70 ML/HR. SAFETY MEASURES ARE IN PLACE, BED ALARM IS ON, BED IS LOCKED AND PLACED IN LOW POSITION SIDE RAILS UP X 2. CALL LIGHT IS WITHIN REACH. WILL ENDORSE CARE TO DAY SHIFT NURSE.
[2019-08-16] MEDS: BLOOD SUGAR DIAGNOSTIC 1 EACH STRIP IN SCH ×3 (06:16→18:00)
[2019-08-16] MEDS: INSULIN REGULAR, HUMAN 100 UNIT/ML 3 ML VIAL SQ PRN ×3 (06:21→18:02)
[2019-08-16] MEDS: IV NS 0.9% 1,000 ML IV PRN (06:28)
[2019-08-16] MEDS ORDERED: QUETIAPINE FUMARATE 25 MG TABLET PO PRN ×2 (07:00→11:30)
[2019-08-16] MEDS ORDERED: METOPROLOL SUCCINATE 50 MG TAB.SR.24H PO SCH ×2 (07:00→15:30)
--- NOTE | 2019-08-16 07:25 | NUR ---
MS RN NOTES RECEIVED PATIENT IN BED ASLEEP. AROUSABLE TO VERBAL AND TACTILE STIMULI. HOB ELEVATED. NO S/S OF RESPIRATORY DISTRESS. DENIES ANY C/O PAIN NOR DISCOMFORT. RIGHT AC # 20 INTACT AND PATENT INFUSING NS AT 70ML/HR DAVID WELL. BED IN LOWEST POSITION, LOCKED. BED ALARM ON. BED SIDERAILS UP X2. CALL LIGHT WITHIN REACH. ABLE TO VERBALIZE NEEDS.
[2019-08-16 08:00] VITALS: BP 170/90
[2019-08-16] MEDS: hydrALAZINE HCL IV 20 MG VIAL IV PRN ×3 (08:10→18:42)
[2019-08-16 08:20] LABS: BASOPHILS # (AUTO) 0.1 /CMM (0.0-0.2); BASOPHILS % (AUTO) 0.8 % (0.0-2.0); EOSINOPHILS % (AUTO) 1.1 % (0.0-6.0); HEMATOCRIT 41 % (39-51); HEMOGLOBIN 13.6 g/dL (13.5-17.5); LYMPHOCYTES # (AUTO) 1.5 /CMM (0.8-4.8); LYMPHOCYTES % (AUTO) 17.6 % (20.0-44.0); MEAN CORPUSCULAR HGB CONC 33 g/dl (31.0-36.0); MEAN CORPUSCULAR VOLUME 87 fL (80-96); MONOCYTES # (AUTO) 0.7 /CMM (0.1-1.30); MONOCYTES % (AUTO) 8.5 % (2.0-12.0); NEUTROPHILS # (AUTO) 6.2 /CMM (1.8-8.9); PLATELET COUNT (AUTO) 191 /CMM (150-450); RED BLOOD CELL COUNT(AUTO) 4.68 MIL/uL (4.5-6.0); WHITE BLOOD COUNT (AUTO) 8.6 K/uL (4.3-11.0)
[2019-08-16 08:36] LABS: ALBUMIN 2.6 g/dL (3.4-5.0); BILIRUBIN,TOTAL 1.1 mg/dL (0.2-1.0); CALCIUM, SERUM 8.4 mg/dL (8.5-10.1); CREATININE 1.5 mg/dL (0.6-1.3); POTASSIUM 3.2 mmol/L (3.5-5.1); TOTAL PROTEIN, SERUM 6.5 g/dL (6.4-8.2)
[2019-08-16] MEDS ORDERED: ASPIRIN EC 81 MG TABLET.DR PO SCH (09:00)
[2019-08-16] MEDS ORDERED: AMLODIPINE BESYLATE 5 MG TABLET PO SCH ×2 (09:00)
[2019-08-16] MEDS ORDERED: LISINOPRIL (20MG) 20 MG TABLET PO SCH (09:00)
[2019-08-16] MEDS ORDERED: CITALOPRAM HYDROBROMIDE 10 MG TABLET PO SCH (09:00)
[2019-08-16] MEDS ORDERED: SIMVASTATIN 20 MG TABLET PO SCH (09:00)
[2019-08-16] MEDS: PANTOPRAZOLE 40 MG VIAL IV SCH (09:33)
[2019-08-16] MEDS: hydrALAZINE HCL 25 MG TABLET PO SCH ×2 (09:34→12:20)
[2019-08-16] MEDS: Z GUARD REMEDY 2 OZ OINT TP SCH (09:35)
[2019-08-16] MEDS: INSULIN LISPRO/ASPART 100 UNIT/ML CARTRIDGE SQ SCH ×3 (09:41→18:00)
[2019-08-16] MEDS ORDERED: POTASSIUM CHLORIDE 20 MEQ TAB.PRT.SR PO ONE (10:00)
--- NOTE | 2019-08-16 11:20 | NUR ---
MS RN NOTES DONAVAN GARZA SPOKE TO PATIENT VIA TELEHEALTH
[2019-08-16] MEDS ORDERED: CITA10TA17 PO (15:42)
[2019-08-16] MEDS ORDERED: NIFE60TA2 PO (15:42)
[2019-08-16] MEDS ORDERED: INSU100V28 SQ (15:42)
[2019-08-16] MEDS ORDERED: Insulin Glargine,Hum SQ (15:42)
[2019-08-16] MEDS ORDERED: INSU100C SQ (15:42)
[2019-08-16] MEDS ORDERED: Blood Sugar Diagnostic IN (15:42)
[2019-08-16 16:00] VITALS: BP 142/78
[2019-08-16] MEDS ORDERED: NIFEdipine XL 60 MG TAB PO SCH (16:00)
--- NOTE | 2019-08-16 16:26 | NUR ---
MS RN NOTES TRANSFER OF CARE, REPORT GIVEN BY LONDON GEORGE. PATIENT IN BED ALERT ORIENTED X 1-2. NO ACUTE DISTRESS NOTED. BREATHING UNLABORED. IV ACCESS PATENT AND INTACT, NO REDNESS NO SWELLING NOTED. SAFETY MEASURES IN PLACE. CALL LIGHT WITHIN EACH WILL CONTINUE TO MONITOR ACCORDINGLY.
[2019-08-16] MEDS: QUETIAPINE FUMARATE 25 MG TABLET PO SCH (18:01)
[2019-08-16 18:42] VITALS: BP 178/98
--- NOTE | 2019-08-16 18:42 | NUR ---
MS RN NOTES PATIENT NOTED WITH BLOOD PRESSURE OF 178/98 , APRESOLINE IV GIVEN ORDERED. NO ACUTE DISTRESS NOTED. NO OTHER COMPLAINT BY PATIENT.WILL CONTINUE TO MONITOR
--- NOTE | 2019-08-16 19:00 | NUR ---
MS RN NOTES BLOOD PRESSURE RECHECKED NOTED 159/84. NO ACUTE DISTRESS NOTED ON PATIENT. WILL CONTINUE TO MONITOR PATIENT.
--- NOTE | 2019-08-16 19:10 | NUR ---
PASTEURIZING MACHINE OPERATOR NOTES PATIENT DISCHARGE TO [facility] WITH STABLE VITAL SIGNS. NO ACUTE DISTRESS NOTED, BREATHING UNLABORED, NO SOB NOTED . DISCHARGE INSTRUCTIONS GIVEN TO THE EMT PERSONNEL TO BE HANDED OVER TO ASSISTED LIVING STAFF. ALL BELONGINGS ACCOUNTED FOR. IV ACCESS REMOVED, NO REDNESS, NO BLEEDING, NO SWELLING NOTED. PICKED UP VIA AMBULANCE IN A GURNEY ACCOMPANIED BY 2 EMT PERSONNEL IN STABLE CONDITION. PATIENT REFUSED PHOTO TAKEN DESPITE OF EXPLANATION OF RISKS AND BENEFITS.
[2019-08-16] MEDS ORDERED: INSULIN GLARGINE, 100 UNIT/ML CARTRIDGE SQ SCH ×2 (22:00)
[2019-08-17] MEDS ORDERED: CITALOPRAM HYDROBROMIDE 10 MG TABLET PO SCH (09:00)
== END 2019-08-16 19:00 | DRG 683 ==
LOC: ER 21:07 → TELE 08-15 01:16 → MED 08-15 10:07
PROVIDERS: ADMIT Internal Medicine; ATTEND Internal Medicine
DX: N17.9 Acute kidney failure, unspecified (principal); G93.40 Encephalopathy, unspecified; F33.3 Major depressive disorder, recurrent, severe with psychotic symptoms; I69.354 Hemiplegia and hemiparesis following cerebral infarction affecting left non-dominant side; I16.0 Hypertensive urgency; E86.0 Dehydration; E11.9 Type 2 diabetes mellitus without complications; E87.6 Hypokalemia; R13.10 Dysphagia, unspecified; E78.5 Hyperlipidemia, unspecified; D72.829 Elevated white blood cell count, unspecified; F03.90 Unspecified dementia, unspecified severity, without behavioral disturbance, psychotic disturbance, mood disturbance, and anxiety; Z79.84 Long term (current) use of oral hypoglycemic drugs; Z79.899 Other long term (current) drug therapy; Z87.891 Personal history of nicotine dependence; D64.9 Anemia, unspecified; I10 Essential (primary) hypertension
CPT/HCPCS: 36415; 70450-TC; 71045-TC; 74018; 80048-TC; 80053-TC; 80061-TC; 80076-TC; 80305; 81000-TC; 82962-TC; 83540-TC; 84443-TC; 84484-TC; 85025-TC; 87040-TC; 87086-TC; 92611-TC; 97530-TC; A4349; C9113; G0378; G0480; J0360; J1815; J2405; J2543; J3480; J3490; J7030; J7040; J7060; U0003-CS

== ENCOUNTER 2019-08-16 21:23 | Emergency (ER) | payer OTHER, MEDICAID ==
[~2019-08-16] VITALS: Ht 170.2 cm; Wt 95.3 kg
[~2019-08-16 21:23] MED LIST changes: +AMLO5TAB9 PO; +ASPI-1152 PO; +Blood Sugar Diagnostic IN; +CITA10TA17 PO; -ECOTRIN PO; +INSU100C SQ; +INSU100V28 SQ; +Insulin Glargine,Hum SQ; +NIFE60TA2 PO; +QUET25TA PO
[2019-08-16 21:28] VITALS: BP 160/70
--- NOTE | 2019-08-16 21:38 | NUR ---
PATIENT IS BROUGHT IN FROM [facility]IA [facility]BULANCE FOR CATHETER REMOVAL. PATIENT WAS DISCHARGED EARLIER TODAY. FACILITY WANTED PATIENT'S CATHETER REMOVED. UPON ASSESSMENT, PATIENT IS AAOX4. NO SOB. BREATHING EVENLY AND UNLABORED ON ROOM AIR.
--- NOTE | 2019-08-16 21:40 | NUR ---
CONDOM CATHETER REMOVED.
--- NOTE | 2019-08-16 21:47 | NUR ---
Patient discharged to home in stable condition. Written and verbal after care instructions given. Patient verbalizes understanding of instruction.
== END 2019-08-16 21:51 | disposition home or self-care (01) ==
LOC: ER 21:28
DX: Z46.6 Encounter for fitting and adjustment of urinary device (principal); I10 Essential (primary) hypertension; E11.9 Type 2 diabetes mellitus without complications; F32.9 Major depressive disorder, single episode, unspecified; E78.5 Hyperlipidemia, unspecified; Z86.73 Personal history of transient ischemic attack (TIA), and cerebral infarction without residual deficits; Z79.4 Long term (current) use of insulin; Z79.82 Long term (current) use of aspirin; Z79.84 Long term (current) use of oral hypoglycemic drugs; Z79.899 Other long term (current) drug therapy
CPT/HCPCS: 82962-TC

== ENCOUNTER 2019-08-31 18:21 | Emergency (ER) | payer OTHER, MEDICAID ==
[~2019-08-31] VITALS: Ht 170.2 cm; Wt 91.6 kg
[~2019-08-31 18:21] MED LIST changes: -AMLO5TAB9 PO; -ASPI-1152 PO; -CLON0.1T PO; -GLIP5TAB13 PO; -METF-442 PO
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
--- NOTE | 2019-08-31 19:07 | NUR ---
REPORT GIVEN TO TSERING GEORGE FOR ORA
--- NOTE | 2019-08-31 19:10 | NUR ---
CARGO SURVEYOR AT BEDSIDE FOR LABS
[2019-08-31 19:16] LABS: BASOPHILS # (AUTO) 0.1 /CMM (0.0-0.2); BASOPHILS % (AUTO) 0.5 % (0.0-2.0); EOSINOPHILS % (AUTO) 0.5 % (0.0-6.0); HEMATOCRIT 41 % (39-51); HEMOGLOBIN 13.6 g/dL (13.5-17.5); LYMPHOCYTES # (AUTO) 0.8 /CMM (0.8-4.8); LYMPHOCYTES % (AUTO) 6.8 % (20.0-44.0); MEAN CORPUSCULAR HGB CONC 34 g/dl (31.0-36.0); MEAN CORPUSCULAR VOLUME 89 fL (80-96); MONOCYTES # (AUTO) 0.7 /CMM (0.1-1.30); MONOCYTES % (AUTO) 5.8 % (2.0-12.0); NEUTROPHILS # (AUTO) 10.5 /CMM (1.8-8.9); NEUTROPHILS % (AUTO) 86.4 % (43.0-81.0); PLATELET COUNT (AUTO) 255 /CMM (150-450); RED BLOOD CELL COUNT(AUTO) 4.56 MIL/uL (4.5-6.0); WHITE BLOOD COUNT (AUTO) 12.2 K/uL (4.3-11.0)
--- NOTE | 2019-08-31 19:17 | NUR ---
AWAITING FOR PT TO PROVIDE URINE SAMPLE
--- NOTE | 2019-08-31 19:22 | NUR ---
BROUGHT TO CT
[2019-08-31 19:32] LABS: CALCIUM, SERUM 8.6 mg/dL (8.5-10.1); CARBON DIOXIDE 29 mmol/L (21-32); CHLORIDE 101 mmol/L (98-107); CREATININE 1.8 mg/dL (0.6-1.3); GLUCOSE 245 mg/dL (74-106); POTASSIUM 3.7 mmol/L (3.5-5.1); SODIUM SERUM 137 mmol/L (136-145); UREA NITROGEN, BLOOD 28 mg/dL (7-18)
[2019-08-31 19:36] LABS: ACETAMINOPHEN < 10 ug/ml (10-30); ALANINE AMINOTRANSFERASE 16 U/L (12-78); ALBUMIN 3.1 g/dL (3.4-5.0); ALCOHOL, BLOOD < 3 mg/dL (0-0); ALKALINE PHOSPHATASE 94 U/L (46-116); ASPARTATE AMINOTRANSFERASE 17 U/L (15-37); BILIRUBIN,DIRECT 0.2 mg/dL (0.0-0.2); BILIRUBIN,TOTAL 0.5 mg/dL (0.2-1.0); SALICYLATE 0.5 mg/dL (2.8-20.0); TOTAL PROTEIN, SERUM 7.3 g/dL (6.4-8.2)
--- NOTE | 2019-08-31 19:38 | NUR ---
URINE SENT TO LAB
--- NOTE | 2019-08-31 19:39 | NUR ---
BACK FROM CT
[2019-08-31 19:45] LABS: APPEARANCE,URINE Clear (CLEAR); BILIRUBIN,URINE Negative (NEGATIVE); BLOOD, URINE Trace-lysed Ery/uL (NEGATIVE); COLOR,URINE Yellow (YELLOW); KETONES,URINE Negative (NEGATIVE); LEUKOCYTE ESTERASE ,URINE Negative (NEGATIVE); NITRITE, URINE Negative (NEGATIVE); PH,URINE 5.5 (5.0-8.0); PROTEIN,URINE >=300 mg/dl (NEGATIVE); UGLUCOSE 500 MG/DL mg/dL (NEGATIVE)
[2019-08-31 19:54] LABS: WBC,URINE NONE SEEN /HPF (0-3)
[2019-08-31 19:55] LABS: BACTERIA,URINE Rare /HPF (None Seen)
[2019-08-31] MEDS ORDERED: AMLODIPINE BESYLATE 5 MG TABLET ONE (20:51)
[2019-08-31] MEDS ORDERED: hydrALAZINE HCL 10 MG TABLET PO ONE (21:00)
[2019-08-31] MEDS ORDERED: AMLODIPINE BESYLATE 5 MG TABLET PO ONE (21:00)
--- NOTE | 2019-08-31 21:13 | NUR ---
PT VERY ANXIOUS. MD AWARE. ORDERED 1MG ATIVAN PO.
[2019-08-31] MEDS ORDERED: LORAZEPAM 1 MG TABLET ONE (21:14)
[2019-08-31] MEDS ORDERED: LORAZEPAM 1 MG TABLET PO ONE (21:30)
--- NOTE | 2019-08-31 21:35 | NUR ---
CALLED [facility], NO AMBULANCE AVAILABLE AT THIS TIME
--- NOTE | 2019-08-31 21:37 | NUR ---
CALLED [facility] FOR TRANSPORTATION. ETA [phone]
--- NOTE | 2019-08-31 21:51 | NUR ---
PT RESTING COMFORTBALY. VSS.
--- NOTE | 2019-08-31 23:18 | NUR ---
In bed comfortably. vss.
--- NOTE | 2019-09-01 00:33 | NUR ---
sitter at bedside. vss. resting.
[2019-09-01] MEDS ORDERED: CLONIDINE HCL 0.1 MG TABLET ONE (00:45)
--- NOTE | 2019-09-01 00:49 | NUR ---
LEONARDO ABBASI FROM [facility] PT IS RETURNING TO FACILITY, VERBALIZED UNDERSTANDING.
[2019-09-01] MEDS ORDERED: CLONIDINE HCL 0.1 MG TABLET PO ONE ×2 (01:00)
--- NOTE | 2019-09-01 01:40 | NUR ---
CALLED [facility], DELAYED 1 HOUR. ETA [phone]
--- NOTE | 2019-09-01 02:28 | NUR ---
REPORT GIVEN TO MILDRED VELARDE. PT TRANSFERED BACK TO FACILITY
[2019-09-01 02:29] VITALS: BP 134/63
== END 2019-09-01 02:30 | disposition home or self-care (01) ==
LOC: ER 18:22
DX: S00.03XA Contusion of scalp, initial encounter (principal); R45.1 Restlessness and agitation; I10 Essential (primary) hypertension; E11.9 Type 2 diabetes mellitus without complications; F32.9 Major depressive disorder, single episode, unspecified; Z86.73 Personal history of transient ischemic attack (TIA), and cerebral infarction without residual deficits; Z79.4 Long term (current) use of insulin; Z79.899 Other long term (current) drug therapy; W18.39XA Other fall on same level, initial encounter; Y93.89 Activity, other specified; Y92.89 Other specified places as the place of occurrence of the external cause; Y99.8 Other external cause status
CPT/HCPCS: 36415; 70450; 72125; 80048; 80076; 80305; 80307; 80329; 81001; 85025; 99285; G0480; 81000-TC

== ENCOUNTER 2019-09-03 14:17 | Emergency (ER) | payer OTHER, MEDICAID ==
[~2019-09-03] VITALS: Ht 182.9 cm; Wt 79.4 kg
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
--- NOTE | 2019-09-03 14:21 | NUR ---
dr thacker at bedside for eval.
[2019-09-03] MEDS ORDERED: NIFE60TA2 PO (14:31)
[2019-09-03] MEDS ORDERED: INSU100V SQ (14:31)
[2019-09-03] MEDS ORDERED: INSU100I26 SQ (14:31)
[2019-09-03] MEDS ORDERED: CITA10TA17 PO (14:31)
[2019-09-03 14:51] LABS: BASOPHILS % (AUTO) 0.3 % (0.0-2.0); EOSINOPHILS % (AUTO) 1.5 % (0.0-6.0); HEMATOCRIT 37 % (39-51); HEMOGLOBIN 12.2 g/dL (13.5-17.5); LYMPHOCYTES % (AUTO) 11.5 % (20.0-44.0); MEAN CORPUSCULAR HGB CONC 33 g/dl (31.0-36.0); MEAN CORPUSCULAR VOLUME 90 fL (80-96); MONOCYTES # (AUTO) 0.7 /CMM (0.1-1.30); MONOCYTES % (AUTO) 8.2 % (2.0-12.0); NEUTROPHILS % (AUTO) 78.5 % (43.0-81.0); PLATELET COUNT (AUTO) 203 /CMM (150-450); RED BLOOD CELL COUNT(AUTO) 4.09 MIL/uL (4.5-6.0); WHITE BLOOD COUNT (AUTO) 8.9 K/uL (4.3-11.0)
--- NOTE | 2019-09-03 14:56 | NUR ---
EMILIO FROM [facility] CALLED. PT IS GOING TO [facility] FOR ADMISSION AFTER PT GETS MEDICALLY CLEARED
[2019-09-03 15:08] LABS: CALCIUM, SERUM 8.1 mg/dL (8.5-10.1); CARBON DIOXIDE 28 mmol/L (21-32); CHLORIDE 105 mmol/L (98-107); CREATININE 1.9 mg/dL (0.6-1.3); GLUCOSE 137 mg/dL (74-106); POTASSIUM 3.4 mmol/L (3.5-5.1); SODIUM SERUM 141 mmol/L (136-145); UREA NITROGEN, BLOOD 26 mg/dL (7-18)
--- NOTE | 2019-09-03 15:14 | NUR ---
TRANSPORT CALLED, ETA [phone] TRIP #[id number]
--- NOTE | 2019-09-03 15:19 | NUR ---
CALLED [facility] ETA IS [phone]
[2019-09-03 15:24] LABS: ALANINE AMINOTRANSFERASE 14 U/L (12-78); ALBUMIN 2.7 g/dL (3.4-5.0); ALKALINE PHOSPHATASE 84 U/L (46-116); ASPARTATE AMINOTRANSFERASE 17 U/L (15-37); BILIRUBIN,DIRECT 0.1 mg/dL (0.0-0.2); BILIRUBIN,TOTAL 0.5 mg/dL (0.2-1.0); TOTAL PROTEIN, SERUM 6.8 g/dL (6.4-8.2)
[2019-09-03 15:26] LABS: ACETAMINOPHEN < 2 ug/ml (10-30); ALCOHOL, BLOOD < 3 mg/dL (0-0); SALICYLATE < 2.8 mg/dL (2.8-20.0)
--- NOTE | 2019-09-03 15:35 | NUR ---
pt still unable to provide urine sample at this time. jorge thacker aware.
--- NOTE | 2019-09-03 15:47 | NUR ---
report given to [facility] charge nurse. pt awaiting transport.
[2019-09-03 15:53] VITALS: BP 145/82
== END 2019-09-03 16:07 ==
LOC: ER 14:24
DX: Z02.2 Encounter for examination for admission to residential institution (principal); R46.89 Other symptoms and signs involving appearance and behavior; I69.354 Hemiplegia and hemiparesis following cerebral infarction affecting left non-dominant side; E11.9 Type 2 diabetes mellitus without complications; I10 Essential (primary) hypertension; Z79.4 Long term (current) use of insulin
CPT/HCPCS: 36415; 80048; 80076; 80307; 80329; 85025; 87426; 99285; G0480